=== PATIENT | female | born 1950 | race Caucasian/White ===

== ENCOUNTER → 2023-06-13 14:13 | Outpatient (REF) | payer MEDICARE, OTHER, SELFPAY | LOC: HWRAD 14:13 | PROVIDERS: ATTENDING PHYSICIAN Obstetrics & Gynecology Gynecology; FAMILY PHYSICIAN Internal Medicine | DX: R10.2 Pelvic and perineal pain (principal) | CPT/HCPCS: 76830; 76856 ==

== ENCOUNTER → 2023-08-22 15:38 | Outpatient (REF) | payer MEDICARE, OTHER, SELFPAY | LOC: WDC 15:38 | PROVIDERS: ATTENDING PHYSICIAN Obstetrics & Gynecology Gynecology; FAMILY PHYSICIAN Family Medicine | DX: Z12.31 Encounter for screening mammogram for malignant neoplasm of breast (principal) | CPT/HCPCS: 77063; 77067 ==

== ENCOUNTER → 2023-09-04 11:13 | Outpatient (REF) | payer MEDICARE, OTHER, SELFPAY ==
--- NOTE | 2023-09-04 15:15 | OID.BR.INTR ---
[facility] Breast Navigator - Initial
- -
Date of Contact: 09/04/23
Met with patient. Patient given written information on navigator services available at [facility]. Will follow up as needed per protocol.
== END ==
LOC: WDC 11:13
PROVIDERS: ATTENDING PHYSICIAN Obstetrics & Gynecology Gynecology
DX: N63.21 Unspecified lump in the left breast, upper outer quadrant (principal)
CPT/HCPCS: 88305; 19083; 77065; 88341; 88342; 88360; A4648

== ENCOUNTER → 2023-09-21 07:15 | Outpatient (REF) | payer MEDICARE, OTHER, SELFPAY | LOC: HWRAD 07:15 | PROVIDERS: ATTENDING PHYSICIAN Family Medicine | DX: K76.9 Liver disease, unspecified (principal) | CPT/HCPCS: 76700 ==

== ENCOUNTER 2024-06-11 06:04 | Day surgery (SDC) | payer MEDICARE, OTHER, SELFPAY ==
[2024-06-04 13:39] VITALS: BMI 27.9
[2024-06-11] VITALS (13 sets, daily range): BP systolic 104–176; BP diastolic 72–105; BMI 27.9
[2024-06-11] MEDS: NORMOSOL-R/PLASMALYTE-A 1000 IV (06:45)
[2024-06-11] MEDS: Pyridium 200 MG PO (06:49)
[2024-06-11] MEDS: HEPARIN 5000 UNITS SC (06:49)
[2024-06-11] MEDS: DILAUDID 0.5 MG IV (10:27)
[2024-06-11] MEDS: DEMEROL 12.5 MG IV (10:35)
[2024-06-11] MEDS: VERSED 1 MG IV (11:05)
== END 2024-06-11 14:35 | disposition home or self-care (01) ==
LOC: SDS 06:04
PROVIDERS: ATTENDING PHYSICIAN Obstetrics & Gynecology
DX: N81.11 Cystocele, midline (principal); N83.202 Unspecified ovarian cyst, left side; N83.201 Unspecified ovarian cyst, right side; D25.9 Leiomyoma of uterus, unspecified
CPT/HCPCS: 58571; 57283; 57250; 88307; 86900; 86901